=== PATIENT | female | born 1965 | race Caucasian/White ===

== ENCOUNTER 2016-07-02 14:36 | Emergency (ER) | payer BC ==
[2015-12-06 09:26] VITALS: BMI 35.5
[~2016-07-02 14:36] MED LIST: AZILECT0.5 MG PO; CARDURA2 MG PO; DEMEROL50 MG PO; DEPAKOTE ER500 MG PO; LINZESS290 MCG PO; LYRICA75 MG PO; MIRAPEX0.125 MG PO; PRAVACHOL20 MG PO; PROBIOTIC1 EAC1 PO; SYNTHROID25 MCG PO; VALIUM5 MG PO; ZANAFLEX4 MG PO; ZESTRIL40 MG PO
[2016-07-02 16:04] LABS: BASOPHILS 0.6 % (0.0-2.0); EOSINOPHILS 3.9 % (0-7); HEMATOCRIT 31.8 % (36.0-48.0); HEMOGLOBIN 10.1 g/dL (12-16); LYMPHOCYTES 33.1 % (15-50); MCH 30.3 pg (26.0-34.0); MCHC 31.8 g/dL (31.0-37.0); MCV 95.5 fL (80.0-100.0); MEAN PLATELET VOLUME 12.3 fL (7.4-10.4); NEUTROPHILS 53.4 % (40-80); RBC 3.33 10x6/uL (4.00-5.40); RDW 12.5 % (11.5-14.5); WBC 3.3 10x3/uL (4.8-10.8)
[2016-07-02 16:07] LABS: PLATELET COUNT 137 10x3/uL (130-400)
[2016-07-02 16:41] LABS: ALBUMIN 3.4 g/dL (3.4-5.0); ALKALINE PHOSPHATASE 73 U/L (46-116); ALT (SGPT) 33 U/L (10-68); AMYLASE - SERUM 21 U/L (25-115); BILIRUBIN - TOTAL 0.23 mg/dL (0.2-1.3); CALC OSMOLALITY 288 mosm/kg (275-300); CALCIUM 8.8 mg/dL (8.5-10.1); CARBON DIOXIDE 31.5 mmol/L (21.0-32.0); CHLORIDE - SERUM 108 mmol/L (98-107); CKMB 0.4 U/L (0.0-3.6); CREATINE KINASE 142 UL (21-215); CREATININE - SERUM 0.8 mg/dL (0.6-1.3); GLUCOSE 107 mg/dL (74-106); LIPASE 105 U/L (73-393); POTASSIUM - SERUM 4.1 mmol/L (3.5-5.1); PROTEIN - SERUM 6.4 g/dL (6.4-8.2); SODIUM 145 mmol/L (136-145); UREA NITROGEN 12 mg/dL (7-18); eGFR NON AFRICAN AMERICAN 79 mL/min (90-120)
[2016-07-02 16:49] LABS: TROPONIN-I < 0.017 ng/mL (0.000-0.060)
== END 2016-07-02 18:38 | disposition home or self-care (01) ==
LOC: D.ER 14:36
PROVIDERS: Emergency Medicine
DX: R10.13 Epigastric pain (principal); G20 Parkinson's disease

== ENCOUNTER 2017-02-19 00:32 | Emergency (ER) | payer BC ==
[2015-12-06 09:26] VITALS: BMI 35.5
[2017-02-19 02:06] LABS: APPEARANCE CLEAR (CLEAR); BILIRUBIN NEGATIVE (NEGATIVE); COLOR YELLOW (YELLOW); GLUCOSE NEGATIVE (NEGATIVE); KETONE NEGATIVE (NEGATIVE); LEUKOCYTE ESTERASE NEGATIVE (NEGATIVE); NITRITE NEGATIVE (NEGATIVE); PROTEIN NEGATIVE (NEGATIVE); SPECIFIC GRAVITY 1.005 (1.005-1.020); UROBILINOGEN NORMAL (NORMAL)
[2017-02-19 02:06] LABS: BASOPHILS 0.4 % (0-2); EOSINOPHILS 2.4 % (0-7); HEMATOCRIT 38.4 % (36.0-48.0); HEMOGLOBIN 12.4 g/dL (12-16); IMMATURE GRANULOCYTES 0.2 % (0-5); LYMPHOCYTES 30.9 % (15-50); MCH 31.2 pg (26.0-34.0); MCHC 32.3 g/dL (31.0-37.0); MCV 96.5 fL (80.0-100.0); MEAN PLATELET VOLUME 12.1 fL (7.4-10.4); MONOCYTES 7.2 % (2-11); NEUTROPHILS 58.9 % (40-80); PLATELET COUNT 164 10x3/uL (130-400); RBC 3.98 10x6/uL (4.00-5.40); RDW 12.6 % (11.5-14.5); WBC 5.3 10x3/uL (4.8-10.8)
[2017-02-19 02:18] LABS: ALBUMIN 3.2 g/dL (3.4-5.0); ALKALINE PHOSPHATASE 86 U/L (46-116); ALT (SGPT) 19 U/L (10-68); BILIRUBIN - TOTAL 0.21 mg/dL (0.2-1.3); CALC OSMOLALITY 286 mosm/kg (275-300); CALCIUM 8.2 mg/dL (8.5-10.1); CARBON DIOXIDE 31.7 mmol/L (21.0-32.0); CHLORIDE - SERUM 104 mmol/L (98-107); CREATININE - SERUM 0.8 mg/dL (0.6-1.3); GLUCOSE 148 mg/dL (74-106); POTASSIUM - SERUM 4.5 mmol/L (3.5-5.1); PROTEIN - SERUM 7.2 g/dL (6.4-8.2); SODIUM 141 mmol/L (136-145); UREA NITROGEN 21 mg/dL (7-18); eGFR NON AFRICAN AMERICAN 79 mL/min (90-120)
[2017-02-19 02:31] LABS: UDS - AMPHET NEGATIVE QUAL (NEGATIVE); UDS - BARB NEGATIVE QUAL (NEGATIVE); UDS - BENZO NEGATIVE QUAL (NEGATIVE); UDS - COCAINE NEGATIVE QUAL (NEGATIVE); UDS - METH NEGATIVE QUAL (NEGATIVE); UDS - OPIATE NEGATIVE QUAL (NEGATIVE); UDS - PCP NEGATIVE QUAL (NEGATIVE); UDS - THC NEGATIVE QUAL (NEGATIVE)
[2017-02-19 02:41] LABS: VALPROIC ACID (DEPAKOTE) 36.4 ug/mL (50.0-100.0)
== END 2017-02-19 04:14 | disposition home or self-care (01) ==
LOC: D.ER 00:32
PROVIDERS: Emergency Medicine
DX: R10.9 Unspecified abdominal pain (principal); G20 Parkinson's disease

== ENCOUNTER → 2017-05-08 16:41 | Outpatient (CLI) | payer BC ==
[2015-12-06 09:26] VITALS: BMI 35.5
== END | disposition home or self-care (01) ==
LOC: D.MAMMO 16:15
DX: Z12.31 Encounter for screening mammogram for malignant neoplasm of breast (principal)

== ENCOUNTER → 2017-08-18 16:40 | Outpatient (CLI) | payer BC ==
[2015-12-06 09:26] VITALS: BMI 35.5
== END | disposition home or self-care (01) ==
LOC: D.MAMMO 09:30
DX: R92.8 Other abnormal and inconclusive findings on diagnostic imaging of breast (principal)